=== PATIENT | male | born 1970 | race Caucasian/White ===

== ENCOUNTER 2022-11-20 10:47 | Outpatient (CLI) | payer OTHER, SELFPAY ==
--- NOTE | 2022-11-20 10:30 | DI.RAD_ITS ---
Exam(s) XR STANDING ALIGNMENT EXAM: XR STANDING ALIGNMENT CLINICAL HISTORY: L knee pain. TECHNIQUE: 2D digital imaging was performed. Standing AP views were performed from the pelvis throu gh the ankles. COMPARISON: CR XR KNEE LT 2V AP,LAT from 11/20/2022 FINDINGS: BONES: No acute fracture is present. No bony destructive lesion is seen. Leg length discrepancy: JOINTS: Knees: Moderate narrowing medial femoral tibial joint. Mild periarticular spurring. Right k nee unremarkable. The ankle joints are unremarkable. The hip joints are unremarkable. SOFT TISSUE: Normal. IMPRESSION: Moderate degenerative changes of the left knee . No significant leg length discrepancy. DATA REPOSITORY: RADIATION DOSE DELIVERED:
--- NOTE | 2022-11-20 10:30 | DI.RAD_ITS ---
Exam(s) XR KNEE LT 2V AP,LAT EXAM: XR KNEE LT 2V AP,LAT INDICATION: L knee pain. COMPARISON: CR LEFT KNEE 3 VIEW COMPLETE from 06/19/2009 TECHNIQUE: 2D digital imaging was performed. Two views. FINDINGS: Moderate narrowing of the medial femoral tibial joint. Prominent periarticular spurring . No visibl e joint effusion. Degenerative changes also seen at the proximal tibial fibular joint. Impression: Degenerative changes, greatest of the medial femoral joint. DATA REPOSITORY: RADIATION DOSE DELIVERED:
== END 2022-11-20 10:48 | disposition home or self-care (01) ==
LOC: DIORS 10:47
PROVIDERS: PCP Internal Medicine; Visit Provider Physician Assistant
DX: M17.12 Unilateral primary osteoarthritis, left knee
CPT/HCPCS: 73560; 77073

== ENCOUNTER 2023-02-08 04:06 | Outpatient (CLI) | payer OTHER, SELFPAY ==
[2023-02-08 11:26] LABS: HCT 45.7 % (40.0-50.0); HGB 15.1 g/dL (13.5-17.5); MCH 29.6 pg (27.0-33.0); MCV 90 fL (80-95); MPV 9.2 fL (8.0-11.0); Platelet Count 250 10^3/uL (130-400); RDW 13.7 % (11.8-14.1); RDW-SD 45.2 fL; WBC 8.23 10^3/uL (4.4-10.8)
[2023-02-08 12:51] LABS: Anion Gap 9.2 mmol/L (3-11); BUN 22 mg/dL (7-18); CO2 26.8 mmol/L (21.0-32.0); CREATININE 0.9 mg/dL (0.70-1.30); Calcium 9.6 mg/dL (8.5-10.1); Chloride 106 mmol/L (98-107); Glucose 103 mg/dL (74-106); Potassium 4.3 mmol/L (3.5-5.1); Sodium 142 mmol/L (136-145)
== END 2023-02-08 04:07 | disposition home or self-care (01) ==
LOC: LBO 04:07
PROVIDERS: PCP Internal Medicine; Visit Provider Student in an Organized Health Care Education/Training Program
DX: M17.12 Unilateral primary osteoarthritis, left knee (principal); Z01.818 Encounter for other preprocedural examination
CPT/HCPCS: 36415; 80048; 85027

== ENCOUNTER 2023-02-21 07:12 | Day surgery (SDC) | payer OTHER, SELFPAY ==
--- NOTE | 2023-02-20 14:07 | ANES.PREOP_ITS ---
General Info Date of Service Date Performed: 02/21/23 Height: 6 ft 9 in Weight: 148.778 kg Body Mass Index (BMI): 35.1 Surgical Procedure: Operation Date: 02/21/23 10:25 Proposed Procedure Side Surgeon p Knee Total Arthroplasty, Cementless CR Left Jatin Lopez MD Meds Allergies and Home Medications Allergies Allergy/AdvReac Type Severity Reaction Status Date / Time citalopram Allergy Unknown Verified 02/21/23 07:52 tree pollen Allergy Unknown Uncoded 02/21/23 07:52 Home Medication Medication Instructions Recorded metoprolol tartrate 50 mg tablet 50 mg PO BID 08/29/22 montelukast 10 mg tablet 10 mg PO DAILY 08/29/22 multivitamin 1 tab PO DAILY 08/29/22 tramadol 50 mg tablet 50 mg PO BID PRN 08/29/22 antiarthritic combination no.2 900 900 mg PO DIRECTED 11/20/22 mg tablet (glucosamine-chondroitin) celecoxib 200 mg capsule 200 mg PO DAILY #30 caps 01/15/23 Current Visit Medications: Current Medications Generic Name Dose Route Start Last Admin Trade Name Freq PRN Reason Stop Dose Admin Acetaminophen 1,000 mg 02/21/23 06:00 Acetaminophen 500 Mg Tab PO 02/21/23 18:00 PREOP [facility]DIA Celecoxib 400 mg 02/21/23 06:00 Celecoxib 200 Mg Cap PO 02/21/23 18:00 PREOP [facility] Gabapentin 300 mg 02/21/23 06:00 Gabapentin 300 Mg Cap PO 02/21/23 18:00 PREOP [facility] Tranexamic Acid 1,000 mg/ 60 mls @ 360 mls/hr 02/21/23 06:00 Sodium Chloride IVPB 02/21/23 18:00 PREOP [facility] Ringer's Solution 1,000 mls @ 80 mls/hr 02/21/23 06:00 IV 03/22/23 23:59 INFUSION [facility] Cefazolin Sodium 3,000 mg/ 100 mls @ 200 mls/hr 02/21/23 06:00 Sodium Chloride IVPB 02/21/23 16:00 PREOP [facility] IV Miscellaneous Supplies 1 each 02/21/23 06:00 Iv Access IV 03/22/23 23:59 DIRECTED [facility]DIA Sodium Chloride 0 ml 02/21/23 06:00 Normal Saline Flush 10 Ml Syr IV 03/22/23 23:59 PRN PRN Sodium Chloride 0 ml 02/21/23 06:00 Normal Saline 10 Ml Vial IJ 03/22/23 23:59 DIRECTED PRN Sterile Water 0 ml 02/21/23 06:00 Water,Injection,Sterile 10 Ml Vial IJ 03/22/23 23:59 DIRECTED PRN PFSH Active Problems Active Problems: Problem Status Onset Code Primary osteoarthritis of left knee M17.12 Hyperlipidemia E78.5 Medical History Medical History Epidermoid cyst of skin Diverticular disease of colon Concussion Surgical History Surgical History History of arthroscopic knee surgery (07/07/22) 07/07/22 Tobacco Smoking/Tobacco Use Status: Never Alcohol Alcohol Intake: current Alcohol intake frequency: a few times a week Substance Use Substance use: Occasionally Substance use type: marijuana Vital Signs and Lab Results Vital Signs Most Recent Vital Signs in EMR: Temp Pulse Resp BP Pulse Ox 36.5 C 67 18 166/114 H 99 02/21/23 07:43 02/21/23 07:43 02/21/23 07:43 02/21/23 07:43 02/21/23 07:43 Lab Results Blood Type / Crossmatch: No Data to Display Complete Blood Count: White Blood Count 8.23 10^3/uL (4.4-10.8) 02/08/23 10:54 Red Blood Count 5.10 10^6/uL (4.36-5.78) 02/08/23 10:54 Hemoglobin 15.1 g/dL (13.5-17.5) 02/08/23 10:54 Hematocrit 45.7 % (40.0-50.0) 02/08/23 10:54 Platelet Count 250 10^3/uL (130-400) 02/08/23 10:54 Complete Metabolic Panel: Sodium 142 mmol/L (136-145) 02/08/23 10:54 Potassium 4.3 mmol/L (3.5-5.1) 02/08/23 10:54 Chloride 106 mmol/L (98-107) 02/08/23 10:54 Carbon Dioxide 26.8 mmol/L (21.0-32.0) 02/08/23 10:54 BUN 22 mg/dL (7-18) H 02/08/23 10:54 Creatinine 0.9 mg/dL (0.70-1.30) 02/08/23 10:54 Est GFR (CKD-EPI 2020) 103.40 (mL/min/1.73m2) 02/08/23 10:54 Calcium 9.6 mg/dL (8.5-10.1) 02/08/23 10:54 Glucose 103 mg/dL (74-106) 02/08/23 10:54 Liver Function Panel: No Data to Display Coagulation Panel: No Data to Display Cardiac Panel: No Data to Display Arterial Blood Gas: No Data to Display Venous Blood Gas: No Data to Display Pancreas Panel: No Data to Display Thyroid Panel: No Data to Display Infectious Disease: No Data to Display Blood Cultures: No Data to Display Toxicology Panel: No Data to Display Anesthesia Assessment and Plan Anesthesia History Personal History: No History of Anesthesia Complications Family History: No Family History of Anesthesia Complications Exercise Tolerance Exercise Tolerance: Metabolic Equivalents>4 Cardiac & Pulmonary Exam Cardiac Exam: Normal S1/S2 Heart Sounds Pulmonary Exam: Clear Bilateral Breath Sounds Implantable Cardiac Device Does patient have a Pacemaker or an ICD?: No Airway Exam Known Difficult Airway: No Mallampati Class: 3 Mouth Opening: Narrow (< 3cm) Thyromental Distance: Less than 3 cm Neck Range of Motion: Limited ROM Neck Circumference: Normal Teeth Condition: Normal Dentition ASA Classification ASA Score: ASA 2 Emergency Case?: No NPO Status NPO Status: NPO Clears >2 hours, Solids >8 hours Anesthesia Plan Resuscitation Status: Full Code Anesthesia Technique: Spinal Anesthesia Airway Planned: Natural Airway Pain Management: Surgeon and patient request nerve block Monitors Used: Standard Monitors Preoperative Comments:: 52 yo male for TKA. Sig PMHx: HTN (metoprolol, bp at home 130/80's), occ EtOh/cannabis, never smoker ,
[2023-02-21] VITALS (16 sets, daily range): BP systolic 83–185; BP diastolic 57–114; PULSE 66–96; RESP 10–20; TEMP 36–36.5; O2SAT 95–99; BMI 35.1
--- NOTE | 2023-02-21 07:19 | W.ANESNERVE ---
Nerve Block Single Injection Procedure Date and Time Date Performed: 02/21/23 Procedure Start: 09:35 Location Where Procedure Performed Procedure Location: Day Surgery Unit Reason Performed: Postoperative Analgesia Requesting Provider: Jatin Lopez Timeout Performed Timeout Performed: Yes Monitoring Used ECG, Blood Pressure and SpO2 Sterility Sterility: Hand Hygiene, Surgical Cap, Surgical Mask, Sterile Gloves and Chlorhexidine Sedation Given During Procedure Sedation Given (Indicate Dose Given): Versed IV Dose:: 2 mg Patient Mental Status Patient Mental Status: Sedate with meaningful communication Nerve Block 1st Nerve Block: Laterality: Left Block Type: Adductor Canal Ultrasound Image Saved?: Yes Needle / Catheter Used: 100mm SonoPlex II Local Anesthetic Bolus (Indicate Dose Given): Lidocaine used for local infiltration of skin and Bupivacaine 0.25% Dose:: 5 mL Additives (Indicate Dose Given): None Ultrasound: Sterile probe cover and gel used Nerve Stimulator: Supplement to Ultrasound use and No twitch or parasthesia noted < 0.5 mA Paresthesia: None Procedure Tolerated: No Complications Procedure Outcome: Successful Performed By: Satish Camarena 2nd Nerve Block: Laterality: Left Block Type: Other (anterior femoral cutaneous. ) Ultrasound Image Saved?: Yes Needle / Catheter Used: 100mm SonoPlex II Local Anesthetic Bolus (Indicate Dose Given): Bupivacaine 0.25% Dose:: 5 mL Additives (Indicate Dose Given): None Ultrasound: Sterile probe cover and gel used Nerve Stimulator: Supplement to Ultrasound use and No twitch or parasthesia noted < 0.5 mA Paresthesia: None Procedure Tolerated: No Complications Procedure Outcome: Successful Performed By: Satish Camarena
[2023-02-21] MEDS: Gabapentin 300 MG CAP PO (08:04)
[2023-02-21] MEDS: Acetaminophen 500 MG TAB 1000 MG PO (08:04)
[2023-02-21] MEDS: Celecoxib 200 MG CAP 400 MG PO (08:04)
[2023-02-21] MEDS: Lactated Ringers 1,000 ML 80 ML IV (08:21)
--- NOTE | 2023-02-21 09:45 | W.PM.DSUDISC ---
Date of service: 02/21/23 Time of Service: 09:45 Discharge Plan Disposition Patient Disposition: Home Condition: Good Discharge Details Reason For Visit: L TKR Attending Provider: Jatin Lopez Primary Care Provider: Hina Blanc Home Meds and New Rx's Prescriptions: New celecoxib 200 mg capsule 200 mg PO BID Qty: 60 0RF aspirin 81 mg tablet,delayed release (DR/EC) 81 mg PO BID Qty: 60 0RF acetaminophen 500 mg tablet 1,000 mg PO TID Qty: 90 3RF pantoprazole 40 mg tablet,delayed release (DR/EC) 40 mg PO DAILY Qty: 30 0RF dexamethasone 4 mg tablet 4 mg PO DAILY Qty: 2 0RF gabapentin 300 mg capsule 300 mg PO QHS Qty: 14 0RF oxycodone 5 mg tablet 5 mg PO Q4H MDD 6 tabs PRN (Reason: pain) Qty: 20 0RF Continued glucosamine-chondroitin 900 mg tablet 900 mg PO DIRECTED metoprolol tartrate 50 mg tablet 50 mg PO BID montelukast 10 mg tablet 10 mg PO DAILY multivitamin Tablet 1 tab PO DAILY Discontinued celecoxib 200 mg capsule 200 mg PO DAILY Qty: 30 1RF Rx Instructions: Take one tablet daily for pain and inflammation tramadol 50 mg tablet 50 mg PO BID PRN Discharge Instructions Additional Instructions: Total Knee Discharge Instructions Activity: The most important activity is to walk and to work on gentle motion (both flexion and extension). You should try to take short walks a few times a day. It is important that when resting you work on keeping the knee straight. Avoid putting a pillow behind the knee as this will encourage flexion. Work on range of motion exercises as provided by Physical Therapy. - Start outpatient physical therapy within 2 weeks. - You should wear the MANUEL hose on both legs for 2 weeks. You may remove these at night. You may also use any compression sock in place of the MANUEL hose. - Utilize [employer] to review exercises, see videos on exercises and obtain basic information pertaining to your surgery and your recovery. Dressing: Remove the Josue wrap by 2 days after your surgery and put on the MANUEL stocking given to you from the hospital. Keep the surgical dressing (underneath the JOSUE wrap) in place for at least one week. After the first week it may be removed and replaced with light gauze and tape or nothing. The wound and dressing may get wet after 3 days but avoid soaking the dressing or otherwise it will need to be changed. Many people prefer covering the dressing with cling wrap (saran wrap) to minimize it from getting soaked. If it gets wet, just pat dry. If it starts to peel off then it will need to be changed. Medications: - You should take Tylenol and anti-inflammatory Celebrex as your primary pain control medications. If the Celebrex is too expensive or not covered, please call the office for another alternative (Advil/Ibuprofen or Naproxen/Aleve) - You have been prescribed a stronger pain medication Oxycodone for breakthrough pain, take as needed as prescribed. - You have also been prescribed a stomach acid reduction agent Pantoprozole to help reduce stomach acid and reflux. - You have been prescribed Gabapentin to take at night for restlessness and nerve pain. - You will be taking Aspirin 81mg twice a day for DVT prevention unless instructed otherwise. - You have also been prescribed Decadron to take to control post-operative nausea and pain. You will start this tomorrow. - If you have constipation you should take Colace or Miralax (both able-[id number]-[id number]). It takes most people 3-4 days to have a bowel movement. Follow-up: 2 weeks If you have any acute concerns or questions, please do not hesitate to contact the office at [phone]. You may contact Dr. Lopez with any questions after hours through the hospital at [phone] or on his cell phone at [phone]. Stand Alone Forms: Anesthesia Discharge InstAlina, Nerve Block Instructions, Ozzy Felder (DSU) Referrals: Jatin Lopez MD [ [facility] STAFF PHYSICIAN] - 03/12/23 10:00 am Equipment/Supplies: Walker Activity:: Activity as Tolerated Shower/Bathe:: 72 hours Diet:: As Tolerated Discharge Orders Discharge Orders: Discharge Order (Routine); Ordered 02/21/23 Ordered By: Scar Cash DS: Diagnosis Discharge Diagnosis (1) Primary osteoarthritis of left knee: Status: Acute
[2023-02-21] MEDS: ceFAZolin 3,000 MG in Normal Saline 100 ML 200 MG IVPB (10:32)
--- NOTE | 2023-02-21 13:09 | W.ANESPOSTOP ---
Postoperative Evaluation Date, Time and Location Date Performed: 02/21/23 Time Performed: 13:09 Patient Location: PACU Vital Signs Most Recent Imported Vital Signs: Most Recent Vital Signs Temp Pulse Resp BP Pulse Ox 36.5 C 73 14 132/91 H 99 02/21/23 13:05 02/21/23 13:05 02/21/23 13:05 02/21/23 13:05 02/21/23 13:05 Pain Score Most Recent Pain Score: Most Recent Pain Score Pain Level 0 02/21/23 09:44 Assessment Mental Status: Awake (Alert & Oriented to Patient Baseline) Airway and Respiratory Function: Patent airway with normal (patient baseline) respiratory exam Cardiovascular Function: Hemodynamically Stable Hydration Status: Adequately Hydrated Nausea & Vomiting: No Nausea or Vomiting Pain: Pain is tolerable per patient (Spinal still in effect. ) Peripheral Nerve Block: Regional nerve block not resolved at time of post operative discharge
[2023-02-21] MEDS: oxyCODONE 5 MG TAB PO (14:35)
--- NOTE | 2023-02-21 14:55 | IN_ITS ---
PT Notes Visit Reasons: L TKR Physical Therapy Day Surgery Initial Evaluation Date: 02/21/2023 Referring Doctor: TANI Canseco PT Orders: PT CONSULT: S/P Ortho Surgery Precautions: WBAT on the L LE with AD. Patient Profile/Admitting Diagnosis: Moiz is a 52-year-old male with primary unilateral osteoarthritis of the left knee and is status post left total knee arthroplasty on postoperative day 0. PMHX: Medical History (Updated 01/15/23 @ 09:49 by Paola Lucio) Epidermoid cyst of skin Diverticular disease of colon Concussion Surgical History (Updated 11/20/22 @ 10:44 by TANI Canseco) History of arthroscopic knee surgery (07/07/22) 07/07/22 Social History/Home Situation: Lives with in a private home with 3 steps to enter with a grab bar on the left side and going up. Independent with all aspects of ADLs prior to surgery although has had increasing difficulty with mobility for performance due to pain on the left knee Equipment Owned/DME: [facility] Subjective: Reports 3?4/10 pain in the left knee at rest and with weight bearing. Denies headache, chest pain, and lightheadedness throughout session. Objective: General Observation: Resting in bed. Kelsie present in room throughout session. SANA wraps to left LE. Cryocuuff to left knee. TEDS to right leg. Mental Status: A and O x 4 Pain: As above ROM: Right Lower Extremity: Hip flexion WFL. Hip abduction WFL. Knee flexion WFL. Ankle dorsiflexion WFL. Ankle plantarflexion WFL. Left Lower Extremity: Hip flexion WFL. Hip abduction WFL. Knee flexion 20 degrees to 90 degrees. Knee extension -20 degrees. Ankle dorsiflexion WFL. Ankle plantarflexion WFL. Strength: Right Lower Extremity: Hip flexors 5/5. Hip abductors 5/5. Knee flexors 5/5. Knee extensors 5/5. Ankle dorsiflexors 5/5. Ankle plantarflexors 5/5. Left Lower Extremity:Hip flexors 4/5. Hip abductors 4/5. Knee flexors 3-/5. Knee extensors 3-5. Ankle dorsiflexors 5/5. Ankle plantarflexors 5/5. Sensation: Intact as to pain and light pressure in BLE Bed Mobility/Transfers: Supine to sit standby assist with cues provided to use B UE for support as needed Sit to stand standby assist with cues provided to use B UE for support Stand to sit standby assist with cues provided to use B UE for support Bed to chair standby assist with cues provided to use B UE for support Gait: Facilitated safe and correct performance of level surface ambulation covering a distance of 150 feet using front wheeled walker with step-through heel-toe gait pattern requiring standby assist with no report of increased pain in the left knee. Good quad activation on the left. Stairs: Guided patient with safe and correct negotiation of 6 x 4 inch steps and 4 x 6 inch steps while holding onto 1 rail with step to gait pattern requiring only standby assist and minimal verbal cueing provided for increased flexion in the left knee during ascent and for overall safety. Balance: Static Sitting: Normal Dynamic Sitting: Normal Static Standing: Fair Dynamic Standing: Fair Special Tests: Mobility Limitations Standardized Measure [facility]-PAC 6 clicks Basic Mobility Inpatient Short Form: Raw Score: 24 CMS Score: 0% deficit Informed Consent/Education: Patient instructed in purpose of PT consult. Packet containing TKA exercise protocol has been given to patient. Education and training on initial set of exercises that can be done at home have been completed with patient. Trained patient with correct performance of exercises below to maximize motor control, joint flexibility, soft tissue extensibility of the L knee musculature: Access Code: [email or web address] URL: [email or web address] Date: 02/21/2023 Prepared by: Evelia Ellis Exercises - Supine Quad Set - 1 x daily - 7 x weekly - 1 sets - 10 reps - 5 hold - Supine Heel Slide - 1 x daily - 7 x weekly - 1 sets - 10 reps - 5 hold - Supine Ankle Pumps - 1 x daily - 7 x weekly - 1 sets - 10 reps - 5 hold - Small Range Straight Leg Raise - 1 x daily - 7 x weekly - 1 sets - 10 reps - 5 hold - Seated March - 1 x daily - 7 x weekly - 1 sets - 10 reps - 5 hold Assessment: Patient requires the use of a front wheeled walker for all mobility ADL performance to maximize independence and reduce fall risk. She is patient presents with clinical signs and symptoms consistent with current/admitting diagnoses that have resulted to mobility limitations, gait instability, generalized weakness, and impairment of motor control as demonstrated by the following impairment level findings: 1. Decreased strength to left knee major muscle groups 2. Impaired standing balance 3. Limitation of joint range of motion in left knee Impairments are contributing to the following functional limitations: 1. Inability to safely ambulate without assistive device 2. Increase completion time for mobility ADL performance 3. Increased fall risk Patient is assessed as a 93612 moderate complexity based on the following: History: 52-year-old female with impairment level findings, functional limitations, and past medical history as indicated above Examination: Demonstrable impairment in strength, balance, and mobility level with underlying impairments and functional limitations as documented above Presentation: Evolving Decision Makin moderate complexity Goals: N/A. PT evaluation and 1-2 treatment sessions only for functional mobility training using recommended AD and for HEP instruction. Plan of Care/Treatment Plan: N/A. PT evaluation and 1-2 treatment session only for functional mobility training using recommended AD and for HEP instruction. DISCHARGE RECOMMENDATIONS: Home when medically cleared by orthopedic surgeon. Recommend outpatient PT services in order to optimize functional mobility outcomes and facilitate return to independent community ambulation without an assistive device. TREATMENT CODE/TIME: 67405 x 20 minutes for 1 unit, 9753 0 x 10 minutes for 1 unit beginning at 14:55 PM. Thank you for the opportunity to participate in the care of this patient. Evelia Ellis PT, DPT, CLT [facility] [place], [place]
--- NOTE | 2023-02-21 14:57 | ROE_ITS ---
Date of service: 02/21/23 Time of Service: 11:00 Operative Note Operative Note DATE OF PROCEDURE: 02/21/23 PRE-OP DIAGNOSIS: Left Knee Osteoarthritis POST-OP DIAGNOSIS: same PROCEDURE: Left Total Knee Replacement SURGEON: Jatin Lopez OBSTETRICIAN/GYNECOLOGIST: Galdino Cash ANESTHESIA TYPE: Spinal Refer to Anesthesia Record ESTIMATED BLOOD LOSS: 100 PATHOLOGY: none sent TOURNIQUET TIME: 0 COMPLICATIONS: None Patient was transported to: PACU Patient's condition: stable Implants: 1. Depuy Attune Cementless Cruciate Retaining Femoral Component, Size 9 2. Depuy Attune Cementless Fixed Bearing Tibial Component, Size 8 3. Depuy Attune 9x6 CR/FB Poly 4. Depuy Attune Patellar Component, Size 41 Indications: I have seen Moiz in clinic for symptoms of knee arthritis, confirmed with radiographic findings. He has exhausted nonoperative methods and was having s ignificant limitations in daily function and desired better function and less pain. I discussed the technical details of a knee replacement. I explained the risks of the procedure to include, but not limited to, bleeding, infection, pain, stiffness, fracture, damage to nerves and vessels, damage to muscles and tendons, loosening, need for repeat procedure, blood clot and cardiopulmonary demise. Despite these risks, Moiz elected to proceed. Findings: There was significant signs of arthritis throughout the knee. Procedure Description: Moiz was greeted in the preoperative holding area where the correct side was identified and marked. The consent was reviewed with the patient and signed. T he history and physical was updated. All questions were answered. Preoperative medications were administered: Acetaminophen 1000mg, Celebrex 400mg, and Gabapentin 300mg. An adductor canal block was then administered by the anesthesia team in the PACU. Moiz was taken back to the operating room. A spinal anesthestic was then administered. The patient was placed into the supine position on the operating room table. A nonsterile tourniquet was placed high onto the leg but only used for cementing. Posts were placed for positioning during the procedure. All bony prominences were well padded. Prophylactic antibiotics in the form of Cefazolin were administered. 1g of Tranxemic Acid was given intravenously within 30 minutes of incision. The left leg was then prepped with Chloraprep and draped in a standard fashion with impervious stockinette. A second prep with Chloraprep was performed prior to application of Iodine impregnated skin protection. A timeout to confirm correct identity, side and site, procedure, allergies, anesthesia, and medical concerns was performed. With the knee in some flexion, a midline incision was made overlying the knee. Full thickness skin flaps were raised once the extensor mechanism was encountered. These were raised medially and laterally. Any bleeding was controlled with electrocautery. Once the extensor mechanism was fully exposed, a medial parapatellar arthrotomy was performed in a flexed position. All bleeding from the arthrotomy and the geniculate arteries was coagulated. A medial subperiosteal peel was performed with electrocautery to the midcoronal plane. The fat pad was removed while keeping the patellar tendon protected. The anterior distal femur synovium was removed for later visualization. The ACL and PCL were resected and the anterior horn of the lateral meniscus was transected. The knee was then flexed with the patella everted. Large osteophytes from the tibia were removed. Large osteophytes from the femur were removed. Using a step drill, and based on preoperative templating, the femoral canal was entered. This was done with a step drill without any difficulty. The intramedullary distal femoral cut guide was inserted, set to a 4 degree valgus cut and 9mm cut thickness. The distal femoral cut guide was then held in position and pinned. With the soft tissues protected, the distal cut was perf ormed. This was passed over a few times to ensure a planar cut. I then turned attention to the tibia. The extramedullary guide was placed onto the leg. The distal aspect was slid medial to adjust for position of center of ankle and stay in line with shaft of the tibia. Approximately 3-5 degrees of posterior slope was kept in the proximal cutting guide. The center of the guide was aligned with the PCL. The stylus was used to assess cut thickness. The medial side, most involved side, was set for a 4mm cut. This was then held in position and pinned into place with 2 additional pins and a cross pin for stability. The medial and lateral collateral ligaments were protected and the cut was performed. With this completed, it was assessed and noted to be of appropriate dimensions. The guide was removed. A spacer block was inserted and the knee was brought into extension. The 6mm spacer block provided full extension, without hyperextension and with stability of both the medial and lateral collateral ligaments was assessed. The pins from the femur and the tibia were then removed. The distal femur was then sized. The anterior stylus was placed onto the lateral ridge of the anterior femur. This indicated a size 9 femur. The external rotation of the guide was adjusted to 3 degrees to match the epicondylar axis, perpendicular to Js?s line. The 4-in-1 cutting guide was the placed. The posterior medial femur cut was evaluated and appeared of good thickness. The spacer block was inserted underneath the cutting guide and stability was confirmed in 90 degrees of flexion. An sergei wing was used to confirm appropriate position of the anterior cut to avoid notching. This cutting guide was ensured to be flush on the cut surface and then pinned into place with headed pins. While protecting the soft tissues, quad tendon, and collateral ligaments, the anterior and posterior cuts were performed with a saw. The central two pins were removed and the posterior and anterior chamfers were cut next. The notch-cutting guide was placed. This was pinned to lateralize the femoral component as much as possible while keeping it flush on the cut surface. This was then pinned into position. A reciprocating saw was used to make the notch cut. A rasp smoothed the cut surfaces. The medial and lateral menisci were removed. A trial femoral component was then inserted, impacted down to the cut surfaces, and the lug holes were drilled. A provisional trial tibial component was placed and the knee was brought through range of motion. There was noted to be excellent extension and flexion. There was no significant instability. The patella was tracking without thumbs. A size 6mm polyethylene component provided the best range of motion and stability with less than 2mm gapping with medial and lateral stress and full extension without significant hyperextension. The tibial cut surface was fully exposed. The tibia was then sized as a 8. The tibia had been previously marked during trialing to correspond to the center of the tibial component to help with rotation. The trial was aligned to this galdino, approximately rotated to the medial 1/3rd of the tibial tubercle. The trial was pinned into place. The tibia was prepared with a reamer and a keel punch and lug holes. The knee was then brought into extension and the patella was measured as 31mm. Using the patellar clamp and cut guide, this was resected to a flat surface with at least 13mm of thickness remaining. The size 41 patella fit the best. This was oriented and then clamped into position. The lugs were drilled. The trial components were removed. The final components were opened on the back table. The periosteal and capsular tissues, especially posteriorly, around the knee were then systematically injected with a periarticular cocktail consisting of 246mg of Ropivacaine, 0.5mg of Epinephrine, 0.08mg of Clonidine, and 30mg of Ketorolac, diluted to 100cc. On the back table, with the implants opened, the cement was mixed. One batch of high viscosity cement was prepared with vacuum assistance. After the cement was ready a small amount was placed on the cut surface of the patella and the patellar button was clamped into position and held. While the cement was hardening, the cementless knee components were placed. Starting with the tibial component, the tibia was subluxed anteriorly and the lug holes of the component were lined up. The tibia was then impacted with an impactor and mallet until the tibial component was in contact with the tibia. The final polyethylene component was inserted. Then, the femoral component was inserted. The lug holes were aligned and the component was impacted into position. The knee was irrigated with Surgiphor Betadine solution. This was allowed to sit in the knee for 3 minutes and then it was irrigated out with saline. After the cement had finally cured, approximately 15min, the clamp was removed from the patella and the knee was taken through range of motion. The patella was tracking with a no-thumbs technique. The capsule was then reapproximated with a No. 1 Vicryl at multiple locations. The capsule was finally closed with a No. 2 Stratafix, barbed suture. The second dosing of 1g TXA was started. Deep tissues were then reapproximated with 0 Vicryl and 2-0 Vicryl. The skin was closed with a running 3-0 Monocryl in a subcuticular fashion. This was reinforced with skin glue. A Mepilex silver dressing was applied along with a [id number] SANA wrap. A CryoCuff was applied. Moiz was transferred to the hospital bed without difficulty an suffering no apparent complication. Moiz has a good prognosis. Physical therapy will start today and without restrictions, weight-bearing as tolerated. Aspirin 81mg BID will be used for DVT prophylaxis.
== END 2023-02-21 16:54 | disposition home or self-care (01) ==
PROVIDERS: PCP Internal Medicine; Visit Provider Student in an Organized Health Care Education/Training Program
PROC: (CPT 27447; principal; 2023-02-21 10:15)
DX: M17.12 Unilateral primary osteoarthritis, left knee (principal); E78.5 Hyperlipidemia, unspecified
CPT/HCPCS: 27447; 76942; 97162; 97530; J0690; J1100; J2250; J2371; J2405; J2704

== ENCOUNTER 2023-03-12 14:54 | Outpatient (CLI) | payer OTHER, SELFPAY ==
--- NOTE | 2023-03-12 09:30 | DI.RAD_ITS ---
Exam(s) XR KNEE LT 1V XR STANDING ALIGNMENT EXAM: XR STANDING ALIGNMENT and XR knee LT 1 V CLINICAL HISTORY: 1ST POST OP L TKA. TECHNIQUE: 2D digital imaging was performed. Five images were obtained. COMPARISON: CR XR KNEE LT 2V AP,LAT from 11/20/2022 CR XR STANDING ALIGNMENT from 11/20/2022 FINDINGS: BONES: The hips are not included on this examination. The patient now has a left total knee replacem ent. The orthopedic hardware appears in good position. No suspicious lucencies are seen around the orthopedic hardware. There is an enthesophyte at the anterior aspect of the left patella. The right knee is well maintained. The ankles are well maintained.There is no significant leg length discrepa ncy. SOFT TISSUE: Normal. IMPRESSION: Stable left total knee replacement. DATA REPOSITORY: RADIATION DOSE DELIVERED:
== END 2023-03-12 14:55 | disposition home or self-care (01) ==
LOC: DIORS 14:54
PROVIDERS: PCP Internal Medicine; Visit Provider Student in an Organized Health Care Education/Training Program
DX: Z96.652 Presence of left artificial knee joint (principal); Z47.1 Aftercare following joint replacement surgery
CPT/HCPCS: 73560; 77073

== ENCOUNTER 2024-02-25 15:32 | Outpatient (CLI) | payer OTHER, SELFPAY ==
--- NOTE | 2024-02-25 10:00 | DI.RAD_ITS ---
Exam(s) XR KNEE LT 2V AP,LAT EXAM: XR KNEE LT 2V AP,LAT INDICATION: ANNUAL F/U L TKA. COMPARISON: CR XR KNEE LT 1V from 03/12/2023 CR XR STANDING ALIGNMENT from 03/12/2023 TECHNIQUE: 2D digital imaging was performed. Two views. FINDINGS: Stable alignment total knee prosthesis. No abnormal surrounding bony lucencies. Degenerative changes again noted at the proximal tibial fibular joint. DATA REPOSITORY: RADIATION DOSE DELIVERED:
== END 2024-02-25 15:33 | disposition home or self-care (01) ==
LOC: DIORS 15:32
PROVIDERS: PCP Internal Medicine; Visit Provider Student in an Organized Health Care Education/Training Program
DX: Z96.652 Presence of left artificial knee joint (principal); Z47.1 Aftercare following joint replacement surgery
CPT/HCPCS: 73560

== ENCOUNTER 2025-01-08 10:14 | Outpatient (CLI) | payer OTHER, SELFPAY ==
--- NOTE | 2025-01-08 09:45 | DI.RAD_ITS ---
Exam(s) XR KNEE RT 4V AP,LAT,DIMITRI,PAT EXAM: XR KNEE RT 4V AP,LAT,DIMITRI,PAT CLINICAL HISTORY: R knee pain. TECHNIQUE: 2D digital imaging was performed. Three views. COMPARISON: CR XR KNEE LT 1V from 03/12/2023 CR XR STANDING ALIGNMENT from 03/12/2023 FINDINGS: BONES: No acute fracture is present. No bony destructive lesion is seen. JOINTS: There is [id number] narrowing of the medial femoral tibial joint space which shows mild periarticular spurring. There is also narrowing of the patellofemoral joint with spurring. No joint effusion is seen. SOFT TISSUE: Normal. IMPRESSION: [id number] degenerative changes. DATA REPOSITORY: RADIATION DOSE DELIVERED:
== END 2025-01-08 10:15 | disposition home or self-care (01) ==
LOC: DIORS 10:15
PROVIDERS: PCP Internal Medicine; Visit Provider Physician Assistant
DX: M25.561 Pain in right knee (principal); M17.11 Unilateral primary osteoarthritis, right knee
CPT/HCPCS: 73564